=== PATIENT | male | born 1995 | race Caucasian/White ===

== ENCOUNTER 2018-10-03 16:57 | Emergency (ER) | payer OTHER ==
[2018-10-03 17:04] VITALS: BP 131/69
[2018-10-03] MEDS ORDERED: AZITHROMYCIN 250 MG TABLET PO STA (17:09)
[2018-10-03] MEDS ORDERED: cefTRIAXone 250 MG VIAL IM STA (17:09)
[2018-10-03] MEDS ORDERED: LIDOCAINE 1% 2 ML VIAL SUBQ ONE (17:09)
--- NOTE | 2018-10-03 17:10 | ED Physician Documentation ---
PD HPI MALE - Stated complaint Stated Complaint: MALE - Chief complaint Chief Complaint: Abd Pain - History obtained from History obtained from: Patient - History of Present Illness Timing - onset: Other (He was recently notified that an ex-girlfriend has chlamydia. He does have some urinary frequency and urethral discharge. No sores or rash.) Review of Systems Constitutional: reports: Reviewed and negative Cardiac: reports: Reviewed and negative Respiratory: reports: Reviewed and negative PD PAST MEDICAL HISTORY - Allergies Allergies/Adverse Reactions: Allergies Allergy/AdvReac Type Severity Reaction Status Date / Time No Known Drug Allergies Allergy Verified 10/03/18 17:00 PD ED PE NORMAL - Vitals Vital signs reviewed: Yes - General General: Alert and oriented X 3, No acute distress - Abdomen Abdomen: Soft, Non tender - Derm Derm: No rash - Psych Psych: Normal mood, Normal affect Results - Vitals Vitals: Vital Signs - 24 hr 10/03/18 17:01 Temperature 36.6 C Heart Rate 64 Respiratory 16 Rate Blood Pressure 131/69 H O2 Saturation 99 Oxygen O2 Source Room air Departure - Departure Disposition: 01 Home, Self Care Clinical Impression: Urethritis, Chlamydia contact Condition: Good Record reviewed to determine appropriate education?: Yes Instructions: ED STD Male Treated Comments: Your blood pressure was elevated today on check into the emergency department. This does not mean that you have hypertension, it is a common phenomenon to come to the emergency department and have elevated blood pressure. I recommend that you see your primary care physician within the week to have it rechecked when you are feeling better.
== END 2018-10-03 17:44 | disposition home or self-care (01) ==
LOC: ED 16:57
DX: N34.2 Other urethritis (principal); Z20.2 Contact with and (suspected) exposure to infections with a predominantly sexual mode of transmission; R03.0 Elevated blood-pressure reading, without diagnosis of hypertension
CPT/HCPCS: 87491; 87591; 96372; 99282; 99283; A9270

== ENCOUNTER 2018-11-15 14:51 | Outpatient (CLI) | payer OTHER | END 2018-11-15 14:52 | disposition home or self-care (01) | LOC: SC 14:51 | PROVIDERS: ATTEND Internal Medicine Pulmonary Disease | DX: R06.83 Snoring (principal); G47.10 Hypersomnia, unspecified; G47.21 Circadian rhythm sleep disorder, delayed sleep phase type | CPT/HCPCS: 99203; 99212 ==

== ENCOUNTER 2018-12-12 17:41 | Emergency (ER) | payer OTHER ==
[2018-12-12 17:46] VITALS: BP 138/85
[2018-12-12] MEDS ORDERED: predniSONE 20 MG TABLET PO STA (18:03)
--- NOTE | 2018-12-12 18:07 | ED Physician Documentation ---
PD HPI SKIN - Stated complaint Stated Complaint: RASH ALL OVER - Chief complaint Chief Complaint: Wound - History obtained from History obtained from: Patient - History of Present Illness Timing - onset: Other (Burning pain in the left chest for about 4 days ago and now rash for 2.) Timing - details: Gradual onset, Still present Location: Chest Quality / character: Painful, Burning (But declines pain medication) Review of Systems Constitutional: reports: Reviewed and negative Cardiac: reports: Reviewed and negative Respiratory: reports: Reviewed and negative PD PAST MEDICAL HISTORY - Past Medical History Cardiovascular: None Respiratory: None Neuro: None Endocrine/Autoimmune: None GI: None : None HEENT: None Psych: None Musculoskeletal: None Derm: None - Past Surgical History Past Surgical History: No - Present Medications Home Medications: Ambulatory Orders Medication Instructions Recorded Confirmed Valacyclovir HCl [Valtrex] 1,000 mg PO TID #30 tablet 12/12/18 predniSONE [Deltasone] 20 mg PO [id number] #21 tab 12/12/18 - Allergies Allergies/Adverse Reactions: Allergies Allergy/AdvReac Type Severity Reaction Status Date / Time No Known Drug Allergies Allergy Verified 12/12/18 17:46 - Social History Does the pt smoke?: No Smoking Status: Never smoker Does the pt drink ETOH?: Yes Does the pt have substance abuse?: No - Immunizations Immunizations are current?: Yes - POLST Patient has POLST: No PD ED PE NORMAL - Vitals Vital signs reviewed: Yes - General General: Alert and oriented X 3, No acute distress - Derm Derm: Other (Herpes zoster in the left T4 dermatome with scattered areas on the chest axilla and back) - Neuro Neuro: Alert and oriented X 3, Normal speech Results - Vitals Vitals: Vital Signs - 24 hr 12/12/18 17:44 Temperature 36.1 C L Heart Rate 60 Respiratory 14 Rate Blood Pressure 138/85 H O2 Saturation 100 Oxygen O2 Source Room air Departure - Departure Disposition: 01 Home, Self Care Clinical Impression: Herpes zoster Qualifiers: Herpes zoster complications: without complications Qualified Code(s): B02.9 - Zoster without complications Condition: Good Record reviewed to determine appropriate education?: Yes Instructions: ED Shingles Prescriptions: predniSONE [Deltasone] 20 mg PO [id number] #21 tab Valacyclovir HCl [Valtrex] 1,000 mg PO TID #30 tablet Comments: Follow-up with your doctor within the week for reevaluation. Return for new or worsening symptoms.
[2018-12-12] MEDS ORDERED: valACYclovir 500 MG TABLET PO STA (18:09)
[2018-12-12] MEDS ORDERED: valACYclovir 500 MG TABLET PO SCH (22:00)
== END 2018-12-12 18:19 | disposition home or self-care (01) ==
LOC: ED 17:41
DX: B02.9 Zoster without complications (principal)
CPT/HCPCS: 96372; 99283; A9270; J7512

== ENCOUNTER 2020-08-03 12:41 | Outpatient (CLI) | payer OTHER ==
[2020-08-03 13:23] VITALS: BP 122/75
--- NOTE | 2020-08-03 13:23 | SLEEP CARE CONSULTATION ---
Information from patient questionnaire entered by Lamar Cruz. I have reviewed and concur with the information entered by Lamar Cruz. This document represents the service I personally performed and the decisions made by me, Kristina Santana ARNP. History of Present Illness Service Date and Time: 08/03/2020 1241 Reason for Visit: Other (Restart process, last seen 10/2018) Chief Complaint: reports: Insomnia, Unrefreshed sleep, Snoring (occasionally), Excessive daytime sleepiness (until noon and then has energy). denies: Observed pauses in breathing, Fatigue, Frequent awakenings at night (doesn't remember them mostly but his Fitbit says he does) Date of Onset: 10 plus years Usual bedtime: 10-11 pm Time it takes to fall asleep: 4-5 hours Snores at night: Yes (occasionally) Observed to quit breathing while asleep: No Sleeps alone due to snoring: No Number of times waking at night: 0 Reasons for waking at night: denies: Choking, Snoring, Gasping for air Toss, Turn, or Twitch while sleeping: Yes Recalls having dreams: No Usually gets out of bed at: 7 am Feels refreshed in the morning: No Morning headache: No Sleepy or fatigued during the day: Yes Ever fallen asleep while driving: Yes (no accidents) Takes day naps: No Dreams during day naps: Yes Prior sleep studies: No Additional HPI information: I had the pleasure of seeing DINAH SAMS today regarding the restarting of process to determine the possibility of him having a sleep disorder. His current complaints are insomnia. He has difficulty getting to sleep, wakes up not feeling rested because he will go to sleep about 2-3 AM and then get up for work at 0730. He is usually very tired until about noon he starts to feel awake and has energy. He would like to get better sleep. 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 Patient is Single and lives in [place]. Have you smoked in the past 12 months: Yes (uses smokless tobacco) Quit date: he is trying to wean himself off of it Alcohol use: No Caffeine use: Yes Caffeine amount and frequency: once daily Family History Family history of sleep disordered breathing: Yes (mom and dad) Family Hx Sleep Apnea: Father: Snoring Allergies and Home Medications Drug allergies reviewed: Yes (NKDA) Home medication list reviewed: Yes (no medications) Review of Systems Weight gain over past 5 years: 25 Cardiovascular: denies: high blood pressure Gastrointestinal: denies: heartburn Neurological: denies: headaches Psychiatric: denies: anxiety, depression, mood disorder Ear/Nose/Throat: denies: nasal congestion, dry mouth/throat, tonsillectomy, wisdom teeth removed Endocrine: denies: thyroid disease Immunologic: denies: allergies to food or environment Physical Exam Blood Pressure: 122/75 Cuff size: wrist Heart Rate: 68 O2 Saturation: 98 Height: 6 ft 1 in Weight: 258 lb Body Mass Index: 34.0 BMI Classification: Obese Impression and Plan 1. Suspected Obstructive Sleep Apnea-Hypopnea Syndrome, as suggested by a history of snoring, unrefreshed sleep, and excessive daytime sleepiness. He was last seen 10/2018 and a sleep study was ordered but due to various circumstances he did not get this done. He returns today to hopefully get the sleep study. I reviewed with the patient that a narrow oropharynx and obesity are common predisposing factors for obstructive sleep apnea-hypopnea syndrome. I recommend proceeding to polysomnography to confirm the diagnosis and to assess severity. If the patient has significant sleep disordered breathing, a manual CPAP titration study will also be performed to find the optimal treatment pressure. I informed the patient of what the sleep studies involve and after some discussion, obtained agreement to proceed. The pathophysiology of obstructive sleep apnea-hypopnea syndrome was discussed with the patient and health risks of cardiovascular and cerebrovascular disease if not treated. Risks of drowsy driving discussed in detail and patient advised to avoid long distance driving and to test puller at the first sign of drowsiness. Patient agreed to plan. * Schedule polysomnography +- manual CPAP titration study and return in 1-2 weeks after the study to discuss result and initiate therapy. * Avoid long distance driving or driving when feeling sleepy. * Avoid sedative and muscle relaxant around bedtime. * Review instructions provided by trained office staff on how to prepare for the sleep study. * Return for follow-up after sleep study completed. Visit Type: In Office Time Spent with Patient (minutes): 16 Provider Statement: I spent 100% of the Face to Face Visit with the patient with greater than 50% spent counseling the patient and coordination of care.
== END 2020-08-03 12:42 | disposition home or self-care (01) ==
LOC: SC 12:41
PROVIDERS: ATTEND Nurse Practitioner Family
DX: R06.83 Snoring (principal); G47.10 Hypersomnia, unspecified; G47.8 Other sleep disorders; G47.00 Insomnia, unspecified
CPT/HCPCS: 99212; 99213